=== PATIENT | male | born 1955 | race Hispanic/Latino ===

== ENCOUNTER → 2018-02-17 | Outpatient (CLI) | payer OTHER ==
[~2018-02-17] MED LIST: REGADENOSON 0.4 MG/5 ML SYR IV ONE
--- NOTE | 2018-02-19 14:14 | Cardiology Report ---
DATE OF STUDY: February 17, 2018 LEXISCAN NUCLEAR STRESS TEST INDICATIONS: Chest pain. DESCRIPTION OF PROCEDURE: After informed consent, the patient was brought to the stress lab. He was given 10.8 mCi of technetium-99 Myoview and myocardial perfusion SPECT images were obtained in the horizontal and short axis, vertical and long axis. Subsequently, the patient was given 0.4 mg of Lexiscan over 10 seconds. Patient was given 29 mCi of technetium-99 Myoview and myocardial perfusion SPECT images were obtained in horizontal and short axis, vertical and long axis. Gating images were also obtained. Patient tolerated the procedure without any complications. REPORT: Baseline EKG shows sinus rhythm at 72 beats per minute. Normal axis. Normal intervals. Nonspecific ST-T changes. PARAMETERS 1. Resting heart rate is 67 beats per minute. 2. Maximum heart rate is 101 beats per minute. 3. Resting blood pressure is 135/78 mmHg. 4. Maximum blood pressure 146/71 mmHg. REASON FOR TERMINATION: End point attained. INTERPRETATION 1. Negative chest pain. 2. Negative for arrhythmias. 3. Blood pressure response consistent with Lexiscan. 4. No significant ST-T changes seen during Lexiscan infusion compared to baseline. 5. Analysis SPECT images reveals uniform radioisotope uptake in all segments of myocardium without and significant perfusion defects. CONCLUSION 1. No evidence of significant ischemia or infarction on this study. 2. No wall motion abnormalities. 3. Overall ejection fraction is 63%. Job#: [id number] [place]
== END ==
LOC: NM 07:54
DX: R94.31 Abnormal electrocardiogram [ECG] [EKG] (principal); I10 Essential (primary) hypertension; Z01.810 Encounter for preprocedural cardiovascular examination
CPT/HCPCS: 78452; 93017; 93306; A9502

== ENCOUNTER 2018-03-15 05:44 | Observation (INO) | payer OTHER ==
[2018-03-12 09:41] LABS: BASOPHILS # (AUTO) 0.1 (0.0-0.1); BASOPHILS % 0.7 % (0.0-1.0); EOSINOPHILS # (AUTO) 0.2 (0.0-0.4); EOSINOPHILS % 2.9 % (0.0-6.0); HEMATOCRIT 44.8 % (38.2-49.6); HEMOGLOBIN 14.8 g/dL (14.0-18.0); LYMPHOCYTES # (AUTO) 1.6 (1.0-3.2); LYMPHOCYTES % 21.7 % (18.0-39.1); MEAN CORPUSCULAR HEMOGLOBIN 30.1 pg (28-32); MEAN CORPUSCULAR VOLUME 91.2 fL (81-99); MONOCYTES # (AUTO) 0.8 (0.2-0.8); NEUTROPHILS # (AUTO) 4.7 (2.1-6.9); NEUTROPHILS % 63.2 % (38.7-80.0); PLATELET COUNT 263 x10e3/uL (140-360); RED BLOOD COUNT 4.91 x10e6/uL (4.3-5.7); RED CELL DISTRIBUTION WIDTH 13.2 % (11.7-14.4)
[2018-03-12 09:58] LABS: BLOOD UREA NITROGEN 18 mg/dL (7-26); BUN/CREATININE RATIO 20 (6-25); CALCIUM 9.8 mg/dL (8.4-10.2); CARBON DIOXIDE 29 mmol/L (22-29); CHLORIDE 102 mmol/L (98-107); CREATININE, SERUM 0.89 mg/dL (0.72-1.25); EST GLOMERULAR FILTRATION RATE > 60 ML/MIN (60-); GLUCOSE 103 mg/dL (74-118); SODIUM 137 mmol/L (136-145)
[~2018-03-15] VITALS: Ht 172.7 cm; Wt 115.7 kg
[~2018-03-15 05:44] MED LIST changes: +ACTOS15 MG PO; +GLIPIZIDE ER5 MG PO; +LISINOPRIL10 MG PO; +METOPROLOL TART50 MG PO; +PRAVASTATIN SOD20 MG PO; -REGADENOSON 0.4 MG/5 ML SYR IV ONE
--- OUTSIDE RECORDS SUMMARY | 2018-03-15 05:47 | XMS REPORT ---
[facility] Address Unknown Phone Unavailable Care Team Providers Care Hvac Sales Engineer Name Role Phone DAXA PALMA Unavailable Unavailable Problems This patient has no known problems. Allergies, Adverse Reactions, Alerts This patient has no known allergies or adverse reactions. Medications This patient has no known medications. Results Test Description Test Time Test Comments Text Results Atomic Results Result Comments Stress Test - Treadmill ONLY 2018-02-19 12:38:00 [place] [id number] Patient Name : PAULETTE SCHREIBER MR #: [id number] : 1955 Age/Sex: 62/M Adm Physician : DAXA PALMA MD Admit Date : Location : PR Room/Bed : REPORT: Cardiology Report DATE OF STUDY: February 17, 2018 LEXISCAN NUCLEAR STRESS TEST INDICATIONS: Chest pain. DESCRIPTION OF PROCEDURE: After informed consent, the patient was brought to the stress lab. He was given 10.8 mCi of technetium-99 Myoview and myocardial perfusion SPECT images were obtained in the horizontal and short axis, vertical and long axis. Subsequently, the patient was given 0.4 mg of Lexiscan over 10 seconds. Patient was given 29 mCi of technetium- 99 Myoview and myocardial perfusion SPECT images were obtained in horizontal and short axis, vertical and long axis. Gating images were also obtained. Patient tolerated the procedure without any complications. REPORT: Baseline EKG shows sinus rhythm at 72 beats per minute. Normal axis. Normal intervals. Nonspecific ST-T changes. PARAMETERS 1. Resting heart rate is 67 beats per minute. 2. Maximum heart rate is 101 beats per minute. 3. Resting blood pressure is 135/78 mmHg. 4. Maximum blood pressure 146/71 mmHg. REASON FOR TERMINATION: End point attained. INTERPRETATION 1. Negative chest pain. 2. Negative for arrhythmias. 3. Blood pressure response consistent with Lexiscan. 4. No significant ST-T changes seen during Lexiscan infusion compared to baseline. 5. Analysis SPECT images reveals uniform radioisotope uptake in all segments of myocardium without and significant perfusion defects. CONCLUSION 1. No evidence of significant ischemia or infarction on this study. 2. No wall motion abnormalities. 3. Overall ejection fraction is 63%. Job#: [id number] [place] Signature Date Dictated By: DAXA PALMA MD Transcribed By: EVELIO on 02/19/18 <Electronically signed by DAXA PALMA MD><<Signature on File>>03/06/18 [id number] COPY TO:
[2018-03-15] MEDS ORDERED: CELECOXIB 200 MG CAP ONE (05:55)
[2018-03-15] MEDS ORDERED: DEXAMETHASONE SOD PHOS 10 MG/1 ML VIAL ONE (05:55)
[2018-03-15] MEDS ORDERED: CEFAZOLIN SOD 2 GM/D5W 50ML 50 ML IV ONE (05:56)
[2018-03-15] MEDS ORDERED: GABAPENTIN 300 MG CAP ONE (05:56)
[2018-03-15] MEDS ORDERED: BACITRACIN 50,000 UNIT VIAL ONE (06:33)
[2018-03-15] MEDS ORDERED: TRANEXAMIC ACID 1,000 MG/10 ML ML ONE (06:33)
[2018-03-15] MEDS ORDERED: MUPIROCIN 2% OINT 22 GM TUBE ONE (06:33)
[2018-03-15] MEDS ORDERED: ROPIVACAINE 246.25 MG, EPINEPHRINE HCL 1:1000 0.5 MG, CLONIDINE HCL 0.08 MG, KETOROLAC ... INJ ONE ×5 (07:30)
[2018-03-15] MEDS: SODIUM CHLORIDE 0.9% 1000ML 1,000 ML IV SCH ×2 (09:21→21:02)
[2018-03-15] MEDS ORDERED: DOCUSATE SODIUM 100 MG CAP PO PRN (09:30)
[2018-03-15] MEDS ORDERED: PROMETHAZINE HCL (IM) 25 MG/ML VIAL IM PRN (09:30)
[2018-03-15] MEDS ORDERED: ZOLPIDEM TARTRATE 5 MG TAB PO PRN (09:30)
[2018-03-15] MEDS ORDERED: DIPHENHYDRAMINE HCL INJ 50 MG/ML VIAL IM/IV PRN (09:30)
[2018-03-15] MEDS ORDERED: ONDANSETRON HCL INJ 2 MG/ML VIAL IV PRN (09:30)
[2018-03-15] MEDS ORDERED: HYDROCODONE 7.5MG/IBUPROFEN 200MG TAB PO PRN (09:30)
--- NOTE | 2018-03-15 10:22 | Diagnostic Imaging Report ---
PROCEDURE: X-RAY RIGHT KNEE, ONE OR TWO VIEWS COMPARISON: None. INDICATIONS:POST RIGHT KNEE SURGERY FINDINGS: Status post right total knee arthroplasty and patellar resurfacing with surrounding soft tissue swelling, air and saad consistent with recent surgery. Hardware appears intact. No acute fractures. Alignment is unremarkable. CONCLUSION: Status post right total knee arthroplasty with expected post surgical findings. Dictated by: TAIWO RILEY M.D. on 03/15/2018 at 10:30 Electronically approved by: TAIWO RILEY M.D. on 03/15/2018 at 10:30
[2018-03-15] MEDS ORDERED: FENTANYL CITRATE/PF 100MCG/2 ML INJ ONE ×2 (10:28→17:14)
--- NOTE | 2018-03-15 10:28 | Operative Report ---
DATE OF PROCEDURE: March 15, 2018 RESTAURANT MGR: Piero Smith PA-C The patient was brought to the operating room for induction of anesthesia. Throughout this case, my PA's assistance was necessary for retraction of soft tissue and positioning of the extremity. This allows for efficient and technically successful execution of the operation and is considered medically necessary. PREOPERATIVE DIAGNOSIS: Osteoarthritis, right knee. POSTOPERATIVE DIAGNOSIS: Osteoarthritis, right knee. PROCEDURE: Right total knee arthroplasty. INDICATIONS: The patient is a 62-year-old gentleman who has end-stage arthritis of both knees. He feels he is more symptomatic on the right side. He has failed conservative management and would now like to proceed with a right total knee replacement. The risks and benefits of the procedure have been explained at length. All of his questions have been answered. He states he understands and wishes to proceed. DESCRIPTION OF PROCEDURE: The patient was brought to the operating room and placed under general anesthetic. He received a regional block, prophylactic antibiotics and tranexamic acid in the holding area. His right lower extremity was prepped and draped in a sterile manner. A preoperative time out was performed. The extremity was exsanguinated, and a proximal tourniquet was inflated to 300 mmHg. An anterior approach with a medial parapatellar arthrotomy was performed. Clear synovial fluid was removed from the joint. Soft-tissue releases were performed to bring the knee up into flexion with the patella everted. The cruciate remnants were excised. A Richardson and Nephew Legion posterior stabilized knee system was used throughout the case. The meniscal remnants and marginal osteophytes were removed. Complete loss of articular cartilage down to polished subchondral bone in the medial compartment was noted. An extramedullary cutting guide was used to resect the proximal tibia. The tibial baseplate was noted to be a size number 5. The central fin punch was impacted, and attention was directed towards the distal femur. An intramedullary cutting guide was used to resect the distal femur in 6 degrees of valgus and 3 degrees of external rotation. The rotation was also referenced off of the epicondylar axis, Kunkle's line and the posterior condyles. The femoral component was a size number 6. Anterior and posterior cuts were made. Trial reductions were performed. A 9-mm ultracongruent tibial insert was felt to provide appropriate soft-tissue balancing in full extension and 90 degrees of flexion. The patella was resurfaced with a 32-mm x 9-mm patellar button. The thickness was checked before and after and was right around 24 mm. Patellar tracking was noted to be concentric. The trial implants were then all removed. A 100-mL premixed pericapsular MATIAS injection was placed into the surrounding soft tissue. The knee was thoroughly irrigated with a shower-tip pulsatile lavage. The components were cemented into place using a single mix of Palacos cement preloaded with antibiotics. Care was taken to remove all extravasated cement. The wound was further irrigated while the cement cured. The arthrotomy was then carefully closed with interrupted #1 Ethibond. The knee was put through flexion and extension to ensure a secure closure. The skin was closed with subcuticular Vicryl and saad. A sterile Aquacel bandage was then applied. The patient was then extubated and transported to the recovery room in stable condition. Blood loss was minimal. All needle and sponge counts were correct. Job#: [id number]
[2018-03-15] MEDS ORDERED: MORPHINE SULFATE 2 MG/ML SYR ONE ×2 (11:56→13:16)
[2018-03-15 14:00] VITALS: BP 126/63
[2018-03-15] MEDS ORDERED: CEFAZOLIN SOD 1 GM/D5W 50ML 50 ML IV SCH (14:00)
[2018-03-15 16:01] VITALS: BP 111/66
[2018-03-15] MEDS: CEFAZOLIN SOD 1 GM VIAL IV SCH (16:01)
[2018-03-15] MEDS: ASPIRIN 325 MG TAB PO SCH (16:01)
[2018-03-15] MEDS ORDERED: CELECOXIB 100 MG CAP PO SCH (17:00)
[2018-03-15] MEDS ORDERED: PROPOFOL IV EMULSION 10 MG/ML 20 ML VIAL ONE (17:11)
[2018-03-15] MEDS ORDERED: GLYCOPYRROLATE INJ 1MG/ 5 ML SYR ONE (17:11)
[2018-03-15] MEDS ORDERED: HYDRALAZINE HCL 20 MG/ML VIAL ONE (17:11)
[2018-03-15] MEDS ORDERED: ONDANSETRON HCL INJ 2 MG/ML VIAL ONE (17:11)
[2018-03-15] MEDS ORDERED: LIDOCAINE HCL 2% LOCAL INJ 5 ML SDV VIAL INJ ONE (17:11)
[2018-03-15] MEDS ORDERED: EPHEDRINE SULFATE INJ 50 MG/10 ML SYR ONE (17:11)
[2018-03-15] MEDS ORDERED: SEVOFLURANE INHAL SOLN 250 ML PEN BTL ONE (17:11)
[2018-03-15] MEDS ORDERED: MIDAZOLAM HCL 2 MG/2 ML VIAL ONE (17:14)
[2018-03-15 20:50] VITALS: BP 132/64
[2018-03-15] MEDS: KETOROLAC TROMETHAMINE 30 MG/ML VIAL IV PRN (21:02)
[2018-03-16 00:05] VITALS: BP 115/63
[2018-03-16] MEDS: CEFAZOLIN SOD 1 GM VIAL IV SCH ×2 (00:28→10:02)
[2018-03-16] MEDS: SODIUM CHLORIDE 0.9% 1000ML 1,000 ML IV SCH (05:21)
[2018-03-16 05:25] VITALS: BP 131/65
[2018-03-16 05:47] LABS: HEMATOCRIT 39.6 % (38.2-49.6); HEMOGLOBIN 13.1 g/dL (14.0-18.0)
[2018-03-16] MEDS: KETOROLAC TROMETHAMINE 30 MG/ML VIAL IV PRN (06:16)
[2018-03-16 08:11] VITALS: BP 144/65
[2018-03-16] MEDS ORDERED: DEXTROSE 50% SYRINGE 50 ML IV PRN (08:30)
[2018-03-16] MEDS ORDERED: TRAMADOL HCL 50 MG TAB PO PRN (08:30)
[2018-03-16] MEDS ORDERED: ASPIRIN325 MG PO (08:32)
[2018-03-16] MEDS ORDERED: PIOGLITAZONE HCL 15 MG TAB PO SCH (09:00)
[2018-03-16] MEDS ORDERED: LISINOPRIL 10 MG TAB PO SCH (09:00)
[2018-03-16] MEDS ORDERED: METOPROLOL TARTRATE 50 MG TAB PO SCH (09:00)
[2018-03-16] MEDS ORDERED: GLIPIZIDE 5 MG TAB ER PO SCH (09:00)
[2018-03-16] MEDS: ASPIRIN 325 MG TAB PO SCH (10:02)
--- NOTE | 2018-03-16 10:08 | Consultation ---
DATE OF CONSULTATION: REASON FOR CONSULTATION: The patient is status post right knee replacement on March 15, 2018. The patient is for medical management. HISTORY: The patient is a 62-year-old male who has severe osteoarthritis. The patient is now status post right knee replacement. The patient is stable. No complications. He is comfortable at this time. PAST MEDICAL HISTORY: Diabetes, type 2, on oral medications, hypertension, enlarged prostate, osteoarthritis of both knees, history of . SOCIAL HISTORY: The patient does not smoke or use alcohol. No recreational drugs. ALLERGIES: TYLENOL. HOME MEDICATIONS: List is reviewed. REVIEW OF SYSTEMS: Postoperative appropriate pain on the right knee. PHYSICAL EXAMINATION VITAL SIGNS: Temperature is 98, blood pressure 140/62, pulse rate 80, respirations 18. GENERAL: The patient is not in acute distress. He is awake. HEENT: Normocephalic, atraumatic and anicteric. NECK: Supple grossly. PULMONARY: Clear to auscultation bilaterally. CARDIOVASCULAR: S1 and S2. Regular rate and rhythm. ABDOMEN: Soft and nontender. EXTREMITIES: No clubbing or cyanosis or edema. Status post right knee replacement. NEUROLOGIC: No gross focal deficit. LABORATORY: WBC is 7.4, hemoglobin 13.1, hematocrit , and platelets 260,000. Chemistry: Sodium is 137, potassium 5, chloride 102, bicarb 29, BUN 18, creatinine 0.92, glucose is 103. ASSESSMENT 1. Status post right knee total replacement. 2. Osteoarthritis. 3. Diabetes mellitus, type 2. 4. Hypertension. PLAN: Continue with postoperative pain management. Resume his home medications. Discontinue . Job#: [id number] [place]
[2018-03-16] MEDS ORDERED: INSULIN LISPRO 100 UNIT/1 ML 3ML VIAL SQ SCH (11:30)
[2018-03-16 12:29] VITALS: BP 130/68
[2018-03-16] MEDS ORDERED: CELEBREX100 MG PO (13:50)
[2018-03-16] MEDS ORDERED: ULTRAM 50MG50 MG PO (13:51)
[2018-03-16] MEDS ORDERED: TRAMADOL HCL100 MG (13:51)
[2018-03-16] MEDS ORDERED: HYDROCODONE-IB1 EACH PO (13:55)
[2018-03-16] MEDS ORDERED: CELECOXIB 200 MG CAP PO SCH (17:00)
[2018-03-16] MEDS ORDERED: PRAVASTATIN 20 MG TAB PO SCH (21:00)
--- NOTE | 2018-04-26 14:55 | Discharge Summary ---
CHIEF COMPLAINT: Right knee pain. HISTORY OF PRESENT ILLNESS: This patient is a 62-year-old male complains of right knee pain for over 8 years. The patient states the pain has gotten progressively worse over the last few months. He states he has had multiple cortisone injections with temporary relief over the years. He states the last injection did not provide lasting relief. He would now like to proceed with a right total knee replacement. The risks and benefits were explained. His x-rays are consistent with end-stage arthritis. The patient states he understands and wished to proceed. HOSPITAL COURSE: The patient underwent a right total knee replacement without complications. He was then transferred to the recovery room in the floor in stable condition. He remained stable throughout his hospital stay. He progressed nicely with physical therapy. He was able to be discharged home on postop day 1. PRINCIPAL DIAGNOSIS: Osteoarthritis of the right knee. PRINCIPAL PROCEDURE: Right total knee replacement. DISCHARGE INSTRUCTIONS: The patient was discharged home with home physical therapy arranged. He was to be weightbearing as tolerated with a rolling walker. He was to resume his home medications as directed. He was to take aspirin twice a day for thromboprophylaxis. He was instructed to follow up in our office in roughly 10 days. DICTATED BY: Piero Smith PA-C PANKAJ CHAN MD Job#: [id number] [place]
== END 2018-03-16 14:40 | disposition home or self-care (01) ==
LOC: OR 05:44 → PACU V 09:26 → MED/SURG 13:57
PROVIDERS: ADMIT Specialist; ATTEND Specialist
DX: M17.11 Unilateral primary osteoarthritis, right knee (principal); E11.9 Type 2 diabetes mellitus without complications; I10 Essential (primary) hypertension; Z79.84 Long term (current) use of oral hypoglycemic drugs; Z88.6 Allergy status to analgesic agent; M06.9 Rheumatoid arthritis, unspecified
CPT/HCPCS: 27447; 36415 ×3; 73560; 80048; 82948 ×2; 85014; 85018; 85025; 86850; 86900; 86920; 97116 ×2; 97139; 97161; C1713; G0378 ×2; G8978; G8979; J0171; J0360; J0690 ×3; J1100; J1885 ×2; J2001; J2250; J2270; J2405; J2704; J2795; J3490; J7030

== ENCOUNTER 2018-08-16 06:18 | Observation (INO) | payer OTHER ==
[2018-08-13 10:43] LABS: BASOPHILS # (AUTO) 0.1 (0.0-0.1); BASOPHILS % 0.8 % (0.0-1.0); EOSINOPHILS # (AUTO) 0.1 (0.0-0.4); EOSINOPHILS % 1.8 % (0.0-6.0); HEMATOCRIT 44.4 % (38.2-49.6); HEMOGLOBIN 14.6 g/dL (14.0-18.0); LYMPHOCYTES # (AUTO) 1.2 (1.0-3.2); LYMPHOCYTES % 16.7 % (18.0-39.1); MEAN CORPUSCULAR HEMOGLOBIN 29.8 pg (28-32); MEAN CORPUSCULAR HGB CONC 32.9 g/dL (31-35); MEAN CORPUSCULAR VOLUME 90.6 fL (81-99); MONOCYTES # (AUTO) 0.6 (0.2-0.8); MONOCYTES % 8.8 % (4.4-11.3); NEUTROPHILS # (AUTO) 5.1 (2.1-6.9); NEUTROPHILS % 71.2 % (38.7-80.0); PLATELET COUNT 281 x10e3/uL (140-360); RED CELL DISTRIBUTION WIDTH 13.5 % (11.7-14.4)
--- NOTE | 2018-08-13 10:54 | Diagnostic Imaging Report ---
EXAMINATION: CHEST 2 VIEWS INDICATION: Pre-admit. COMPARISON: None FINDINGS: TUBES and LINES: None. LUNGS: Lungs are well inflated. Lungs are clear. There is no evidence of pneumonia or pulmonary edema. PLEURA: No pleural effusion or pneumothorax. HEART AND MEDIASTINUM: The cardiomediastinal silhouette is unremarkable. BONES AND SOFT TISSUES: No acute osseous lesion. Soft tissues are unremarkable. UPPER ABDOMEN: No free air under the diaphragm. IMPRESSION: No acute radiographic abnormality. Signed by: Dr. Lupe Blair MD on 08/13/2018 10:51 AM
[2018-08-13 11:08] LABS: ANION GAP 10.1 mmol/L (8-16); BLOOD UREA NITROGEN 17 mg/dL (7-26); BUN/CREATININE RATIO 22 (6-25); CALCIUM 9.5 mg/dL (8.4-10.2); CARBON DIOXIDE 26 mmol/L (22-29); CHLORIDE 104 mmol/L (98-107); CREATININE, SERUM 0.78 mg/dL (0.72-1.25); EST GLOMERULAR FILTRATION RATE > 60 ML/MIN (60-); GLUCOSE 122 mg/dL (74-118); POTASSIUM 4.1 mmol/L (3.5-5.1); SODIUM 136 mmol/L (136-145)
[~2018-08-16] VITALS: Ht 172.7 cm; Wt 99.3 kg
[~2018-08-16 06:18] MED LIST changes: +ASPIRIN325 MG PO; +CEFAZOLIN SOD 2 GM/D5W 50ML 50 ML IV ONE; +CELEBREX100 MG PO; +CELECOXIB 200 MG CAP ONE; +DEXAMETHASONE SOD PHOS 10 MG/1 ML VIAL ONE; +GABAPENTIN 300 MG CAP ONE; +HYDROCODONE-IB1 EACH PO; +TRAMADOL HCL100 MG; +ULTRAM 50MG50 MG PO
[2018-08-16] MEDS ORDERED: ROPIVACAINE 246.25 MG, EPINEPHRINE HCL 1:1000 1ML 0.5 MG, CLONIDINE HCL 0.08 MG, KETORO... INJ ONE ×5 (06:30)
[2018-08-16] MEDS ORDERED: TRANEXAMIC ACID 1,000 MG/10 ML ML ONE (07:30)
[2018-08-16] MEDS ORDERED: BACITRACIN 50,000 UNIT VIAL ONE (07:30)
[2018-08-16] MEDS ORDERED: SODIUM CHLORIDE 0.9% 500ML 500 ML ONE (07:33)
[2018-08-16] MEDS ORDERED: VANCOMYCIN HCL 1,000 MG ONE (07:43)
[2018-08-16] MEDS: SODIUM CHLORIDE 0.9% 1000ML 1,000 ML IV SCH ×2 (10:05→20:05)
[2018-08-16] MEDS ORDERED: FENTANYL CITRATE/PF 100MCG/2 ML INJ ONE ×2 (10:10→19:13)
[2018-08-16] MEDS ORDERED: ACETAMINOPHEN 650 MG SUPP PR PRN (10:15)
[2018-08-16] MEDS ORDERED: HYDROCODONE/APAP 5MG-325MG TAB PO PRN (10:15)
[2018-08-16] MEDS ORDERED: PROMETHAZINE HCL (IM) 25 MG/ML VIAL INJ PRN (10:15)
[2018-08-16] MEDS ORDERED: KETOROLAC TROMETHAMINE 30 MG/ML VIAL IV PRN (10:15)
[2018-08-16] MEDS ORDERED: DIPHENHYDRAMINE HCL INJ 50 MG/ML VIAL IM/IV PRN (10:15)
[2018-08-16] MEDS ORDERED: DOCUSATE SODIUM 100 MG CAP PO PRN (10:15)
[2018-08-16] MEDS ORDERED: ONDANSETRON HCL INJ 2MG/ML 2ML 2 MG/ML VIAL IV PRN (10:15)
[2018-08-16] MEDS ORDERED: ZOLPIDEM TARTRATE 5 MG TAB PO PRN (10:15)
[2018-08-16] MEDS ORDERED: HYDROCODONE/APAP 7.5MG-325MG 1 EA TAB PO PRN (10:15)
[2018-08-16] MEDS ORDERED: HYDROMORPHONE 2MG/ML 2 MG/ML ML ONE (10:30)
--- NOTE | 2018-08-16 11:30 | NUR ---
RECEIVED REPORT FROM AUGUST IN PACU. AWAITING FOR PT TO ARRIVE TO FLOOR
[2018-08-16 11:33] VITALS: BP 136/70
[2018-08-16 11:59] VITALS: BP 136/70
[2018-08-16] MEDS ORDERED: ACETAMINOPHEN 1000 MG/100 ML IV SCH (12:00)
--- NOTE | 2018-08-16 12:12 | NUR ---
PT ARRIVED TO UNIT AA0X3. PT STATES HIS PAIN LEVEL IS A 3/10 TO THE LEFT KNEE. PT IS S/P LEFT KNEE SX. LEFT IS DRESSING COVERED WITH ELENI WRAP THAT IS DRY AND INTACT. ICE PACK IN PLACE. FOOT PUMPS CONNECTED BILATERALLY PT HAS COMPRESSION STOCKING TO RIGHT LEG. IV TO THE RIGHT HAND WITH LR AT 100, SITE IS CLEAN AND DRY PT IS IN NO S.S OF DISTRESS, VOIDED INTO URINAL 100CC OF CLEAR URINE PT IS AWARE OF PLAN OF CARE , WILL CONTINUE TO MONITOR AT THIS TIME. SIDE RAILSX2, BED WHEELS LOCKED, CALL LIGHT IS WITHIN EASY REACH, INSTRUCTED TO CALL FOR ASSISTANCE IF NEEDED
--- NOTE | 2018-08-16 12:14 | NUR ---
PAGED MD JIMENEZ FOR HOME MED RENEWAL. AWAITING FOR CALL BACK
--- NOTE | 2018-08-16 12:18 | Diagnostic Imaging Report ---
Left knee radiographs-2 views History: Post operative radiographs. Findings: Status post left total knee arthroplasty and patellar resurfacing with prosthetic components in anatomic alignment. Overlying soft tissue air and surgical skin saad are present. No evidence of acute fracture. IMPRESSION: Status post left total knee arthroplasty in anatomic position. Signed by: Dr. Lupe Blair MD on 08/16/2018 12:15 PM
[2018-08-16 12:30] VITALS: BP 136/70
[2018-08-16] MEDS ORDERED: TRAMADOL HCL 50 MG TAB PO PRN ×2 (12:45)
[2018-08-16] MEDS ORDERED: DEXTROSE 50% SYRINGE 50 ML IV PRN (13:15)
--- NOTE | 2018-08-16 13:15 | NUR ---
SPOKE TO MD JIMENEZ REGARDING PT ARRIVAL NEW ORDERS RECEIVED
[2018-08-16] MEDS ORDERED: CEFAZOLIN SOD 1 GM/NS 50ML 50 ML IV SCH (14:00)
--- NOTE | 2018-08-16 15:58 | Operative Report ---
DATE OF PROCEDURE: 08/16/2018 SURGEON: Raad Kwan MD HABILITATION SPECIALIST: Piero Smith, certified PA. PREOPERATIVE DIAGNOSIS: Osteoarthritis, left knee. POSTOPERATIVE DIAGNOSIS: Osteoarthritis, left knee. PROCEDURE: Left total knee arthroplasty. INDICATIONS: The patient is a 63-year-old gentleman, who has end-stage arthritis of his left knee. He has failed conservative management and would like to proceed with a left total knee replacement. The risks and benefits were reviewed. He went through a right total knee replacement about six months ago. He states he understands and is highly motivated to proceed with a left knee replacement. PROCEDURE IN DETAIL: The patient was brought to the operating room and placed under general anesthetic. He received prophylactic antibiotics, a regional block and tranexamic acid in the holding area. His left lower extremity was prepped and draped in the sterile manner. A preoperative time-out was performed. The extremity was exsanguinated and a proximal tourniquet was inflated to 300 mmHg. An anterior approach with a medial parapatellar arthrotomy was performed. Clear synovial fluid was removed from the joint. Soft tissue releases were performed to bring the knee up into flexion with the patella everted. Meniscal remnants, marginal osteophytes in the cruciate ligaments were all removed. A Richardson and Nephew legion posterior stabilized knee system was used throughout the case. An extramedullary cutting guide was used to resect the proximal tibia. The tibial base plate was a size #5. The central fin punch was impacted and attention was directed toward the distal femur. An intramedullary cutting guide was used to resect the distal femur and 6 degrees of valgus and an external rotation referencing off a combination of landmarks including [place] line, the epicondylar axis and the posterior condyles. The femoral component was a size #6. The anterior and posterior cuts were made. Trial reductions were performed. A 9 mm ultracongruent tibial insert provided appropriate soft tissue balancing in full extension and 90 degrees of flexion. The patella was resurfaced with a 32 mm x 9 mm patellar button. The thickness was checked before and after and was right around 26 mm. Patellar tracking was noted to be concentric. The trial implants were then all removed. A 100 mL premixed pericapsular MATIAS injection was placed into the surrounding soft tissue. The knee was thoroughly irrigated with a shower tip pulsatile lavage. The components were cemented into place using a single mix of Palacos cement preloaded with antibiotics. Care was taken to remove extravasated cement. The wound was further irrigated while the cement cured. 500 mg of vancomycin powder were then sprinkled into the wound. Throughout the case, a mixture of polymyxin and vancomycin spray had been used to irrigate the wound as well. The arthrotomy was then closed with interrupted #1 Ethibond. The knee was put through flexion and extension to ensure a secure closure. The skin was closed with subcuticular Vicryl and saad. A sterile Aquacel bandage was applied. The patient was extubated and transported to the recovery room in stable condition. Blood loss was minimal. All needle and sponge counts were correct. Raad Kwan MD DR/MATY /[id number] MTDAntonio
[2018-08-16 16:32] VITALS: BP 115/62
[2018-08-16] MEDS ORDERED: CELECOXIB 100 MG CAP PO SCH (17:00)
[2018-08-16] MEDS: INSULIN LISPRO 100 UNIT/1 ML 3ML VIAL SQ SCH ×2 (17:27→20:31)
[2018-08-16] MEDS: CEFAZOLIN SOD 1 GM/NS 50ML 50 ML IV SCH (17:27)
[2018-08-16] MEDS: CELECOXIB 200 MG CAP PO SCH (17:27)
[2018-08-16] MEDS: ASPIRIN 325 MG TAB PO SCH (17:27)
--- NOTE | 2018-08-16 17:28 | NUR ---
reassessed left knee dressing with anne wrap s/p left knee sx. dressing remains dry and intact
[2018-08-16] MEDS ORDERED: DEXAMETHASONE SOD PHOS INJ 4 MG/ML VIAL ONE (17:30)
[2018-08-16] MEDS ORDERED: SEVOFLURANE INHAL SOLN 250 ML PEN BTL ONE (17:30)
[2018-08-16] MEDS ORDERED: LIDOCAINE HCL 2% LOCAL INJ 5 ML SDV VIAL INJ ONE (17:30)
[2018-08-16] MEDS ORDERED: PROPOFOL IV EMULSION 10 MG/ML 20 ML VIAL ONE (17:30)
[2018-08-16] MEDS ORDERED: ONDANSETRON HCL INJ 2MG/ML 2ML 2 MG/ML VIAL ONE (17:30)
[2018-08-16] MEDS ORDERED: HYDRALAZINE HCL 20 MG/ML VIAL ONE (17:30)
[2018-08-16] MEDS ORDERED: ROPIVACAINE 0.5% 5 MG/ML 30 ML SDV ONE (18:13)
[2018-08-16] MEDS ORDERED: LIDOCAINE 2% /EPINEPHRINE 20 ML SDV INJ ONE (18:13)
--- NOTE | 2018-08-16 18:30 | NUR ---
PLACED PT ON CPM AT 60 TOLERATING WELL
[2018-08-16] MEDS ORDERED: MIDAZOLAM HCL 2 MG/2 ML VIAL ONE (19:13)
[2018-08-16] MEDS ORDERED: MORPHINE SULFATE INJ 10 MG/ML ONE (19:13)
[2018-08-16 19:30] VITALS: BP 115/62
[2018-08-16 20:27] VITALS: BP 137/61
[2018-08-17 00:37] VITALS: BP 110/59
[2018-08-17] MEDS: CEFAZOLIN SOD 1 GM/NS 50ML 50 ML IV SCH ×2 (01:28→08:58)
[2018-08-17 04:10] VITALS: BP 115/56
[2018-08-17] MEDS: SODIUM CHLORIDE 0.9% 1000ML 1,000 ML IV SCH (06:05)
[2018-08-17 06:12] LABS: HEMATOCRIT 37.8 % (38.2-49.6); HEMOGLOBIN 12.2 g/dL (14.0-18.0)
[2018-08-17 06:31] LABS: ANION GAP 10.6 mmol/L (8-16); BLOOD UREA NITROGEN 23 mg/dL (7-26); BUN/CREATININE RATIO 29 (6-25); CALCIUM 8.8 mg/dL (8.4-10.2); CARBON DIOXIDE 26 mmol/L (22-29); CHLORIDE 101 mmol/L (98-107); CREATININE, SERUM 0.79 mg/dL (0.72-1.25); EST GLOMERULAR FILTRATION RATE > 60 ML/MIN (60-); GLUCOSE 188 mg/dL (74-118); POTASSIUM 4.6 mmol/L (3.5-5.1); SODIUM 133 mmol/L (136-145)
[2018-08-17] MEDS: INSULIN LISPRO 100 UNIT/1 ML 3ML VIAL SQ SCH ×2 (07:30→11:30)
[2018-08-17 08:26] VITALS: BP 169/74
[2018-08-17] MEDS: CELECOXIB 200 MG CAP PO SCH (08:58)
[2018-08-17 08:59] VITALS: BP 169/74
[2018-08-17] MEDS: ASPIRIN 325 MG TAB PO SCH (08:59)
[2018-08-17] MEDS ORDERED: LISINOPRIL 10 MG TAB PO SCH (09:00)
[2018-08-17] MEDS ORDERED: METOPROLOL TARTRATE 50 MG TAB PO SCH (09:00)
[2018-08-17] MEDS ORDERED: GLIPIZIDE 5 MG TAB ER PO SCH (09:00)
[2018-08-17] MEDS ORDERED: ACETAMINOPHEN 1000 MG/100 ML IV PRN (10:15)
--- NOTE | 2018-08-17 10:32 | NUR ---
CASE MANAGEMENT ASSESSMENT District Home Economics Agent to bedside to discuss plan of care with patient/family. CM/SW role and care transitions discussed. Anticipated discharge plan discussed along with duration of care. CM/SW discussed patients right to make decisions in care. CM/SW work hours given. Patient lives: with Leah Admit/Transfer: from PACU Hospital/ER visits since last admit: Feb 2018 for knee surgery was last admit POA/Emergency contact: Leah Fay [phone] Current/Previous Home Health: none PCP/Follow-up Care: Dr. Winn - PCP; pt will ask Dr. Kwan about follow up appointment when he rounds today. He will call and schedule the appointment as instructed by Dr. Kwan Current/Previous DME: has walker and BSC from previous knee surgery Dr. Kwan's office sent orders for DME to [facility] [employer]. CM called and spoke with Neisha who stated that they were waiting for auth. CM informed her that pt does not need walker or BSC. She will contact CM / pt regarding CPM machine. Pt will ask his to bring his walker to hospital for discharge. Scale of 1-10 how comfortable does patient feel with disease management in outpatient setting: Other Services: none Employment Status: retired Areas of Concerns: s/p knee arthroplasty Referral Needs: home health - Referral was sent by Dr. Kwan's office to [facility]. Pt is agreeable with [facility]. Signed choice form placed in chart. Copy to pt. CM called and spoke with Anna with intake. She stated that pt has been approved and they will see pt tomorrow. Their office will reach out to pt to schedule a time to come see him. Pt was given [facility] information. P [phone] / F [phone] Operative report and PT notes were faxed. Education Needs: post operative instructions IMM/GATES given and signed (if applicable): [place] letter was delivered and explained to pt. He verbalized understanding. Signed copy placed in chart. Copy to pt. Goal for discharge: home with [facility] today. CM/SW left business card at the bedside with contact information. Name and number was also written on the patients whiteboard. Patient verbalized understanding of discussion. CM will follow-up with ongoing discharge and transition of care needs.
[2018-08-17] MEDS ORDERED: ASPIRIN325 MG PO (11:06)
--- NOTE | 2018-08-17 11:19 | NUR ---
DISCHARGE ORDER IN COMPUTER CM HAS SET UP HOME HEALTH PHYSICAL THERAPY HAS WORKED WITH PT TWICE TODAY AND CLEARED PT WILL GET DC INFORMATION READY AT THIS TIME
--- NOTE | 2018-08-17 12:19 | NUR ---
Removed IV at this time from right hand. Pressure dressing applied. Patient ride to arrive around 1400
[2018-08-17 13:17] VITALS: BP 128/74
--- NOTE | 2018-08-17 13:20 | NUR ---
PT WAITING ON FOR RIDE HOME. PT WANTS TO WAIT ON FOR DC INSTRUCTIONS GIVEN. INSTRUCTED PT TO CALL WHEN FAMILY ARRIVED
--- NOTE | 2018-08-17 14:15 | NUR ---
DC INSTRUCTIONS AND PRESCRIPTIONS GIVEN. PT VERBALIZED UNDERSTANDING .PT IS READY FOR DC AT THIS TIME
== END 2018-08-17 14:22 | disposition home health service (06) ==
LOC: OR 06:18 → PACU V 10:08 → MED/SURG 11:47
PROVIDERS: ADMIT Specialist; ATTEND Specialist
DX: M17.12 Unilateral primary osteoarthritis, left knee (principal); E11.9 Type 2 diabetes mellitus without complications; I10 Essential (primary) hypertension; M06.9 Rheumatoid arthritis, unspecified; Z88.6 Allergy status to analgesic agent; Z96.651 Presence of right artificial knee joint; K21.9 Gastro-esophageal reflux disease without esophagitis; Z87.442 Personal history of urinary calculi; F41.9 Anxiety disorder, unspecified; Z79.82 Long term (current) use of aspirin; Z79.84 Long term (current) use of oral hypoglycemic drugs
CPT/HCPCS: 27447; 36415 ×3; 71046; 73560; 80048 ×2; 82948 ×2; 85014; 85018; 85025; 86850; 86900; 86920; 93005; 97116 ×2; 97139; 97161; 97530; G0378 ×2; J0171; J0360; J0690 ×3; J1100 ×2; J1170; J1885 ×2; J2001 ×2; J2250; J2270; J2405; J2704; J2795; J3370; J7040

== ENCOUNTER → 2018-08-26 | Outpatient (CLI) | payer OTHER ==
[~2018-08-26] MED LIST changes: -CEFAZOLIN SOD 2 GM/D5W 50ML 50 ML IV ONE; -CELECOXIB 200 MG CAP ONE; -DEXAMETHASONE SOD PHOS 10 MG/1 ML VIAL ONE; -GABAPENTIN 300 MG CAP ONE
== END ==
LOC: RAD 11:04
PROVIDERS: ATTEND Specialist
DX: R22.42 Localized swelling, mass and lump, left lower limb (principal)
CPT/HCPCS: 93971

== ENCOUNTER → 2023-09-24 | Day surgery (SDC) | payer OTHER ==
[~2023-09-24] MED LIST changes: +ASPIRIN81 MG PO; +BALANCED SALT SOLN (OPTH) 15 ML BTL IO ONE; +BUPIVACAINE HC 0.75% PF 10ML VIAL INJ ONE; +CYCLOPENTOLATE HCL 2% OPTH SOLN 2 ML BTL OP ONE; +EPINEPHRINE HCL 1:1000 1ML 1 MG/ML AMP ONE; +GATIFLOXACIN(OPTH) 5 ML LIQD ONE; +HYDROCHLOROTHIA25 MG PO; +LIDOCAINE 2% /EPINEPHRINE 20 ML SDV INJ ONE; +LIDOCAINE HCL-PF 4% 40 MG/1 ML 5ML AMP ONE; +LIPITOR20 MG PO; +MIDAZOLAM HCL 2 MG/2 ML VIAL ONE; +PEPCID AC10 MG PO; +PHENYLEPHRINE HCL 2 ML DROPS ONE; +POVIDONE IODINE 5% (OPTH) 30 ML BTL ONE; +PROPOFOL IV EMULSION 10 MG/ML 20 ML VIAL ONE
[2023-09-24] MEDS: LACTATED RINGER'S 1,000 ML ONE (09:26)
[2023-09-24 09:32] LABS: BASOPHILS # (AUTO) 0.1 (0.0-0.1); BASOPHILS % 0.7 % (0.0-1.0); EOSINOPHILS # (AUTO) 0.1 (0.0-0.4); EOSINOPHILS % 1.6 % (0.0-6.0); HEMATOCRIT 41.1 % (38.2-49.6); HEMOGLOBIN 13.6 g/dL (14.0-18.0); LYMPHOCYTES # (AUTO) 1.2 (1.0-3.2); LYMPHOCYTES % 12.9 % (18.0-39.1); MEAN CORPUSCULAR HEMOGLOBIN 30.2 pg (28-32); MEAN CORPUSCULAR HGB CONC 33.1 g/dL (31-35); MEAN CORPUSCULAR VOLUME 91.3 fL (81-99); MONOCYTES # (AUTO) 0.8 (0.2-0.8); MONOCYTES % 8.3 % (4.4-11.3); NEUTROPHILS # (AUTO) 6.9 (2.1-6.9); NEUTROPHILS % 76.2 % (38.7-80.0); PLATELET COUNT 222 x10e3/uL (140-360); RED CELL DISTRIBUTION WIDTH 13.6 % (11.7-14.4)
[2023-09-24 09:52] LABS: ANION GAP 14.4 mmol/L (8-16); CALCIUM 9.4 mg/dL (8.4-10.2); CREATININE, SERUM 0.89 mg/dL (0.72-1.25); POTASSIUM 4.4 mmol/L (3.5-5.1)
[2023-09-24 11:03] VITALS: TEMP 98
[2023-09-24 11:30] VITALS: BP 138/80; PULSE 55; RESP 15; O2SAT 97
== END | disposition home or self-care (01) ==
LOC: OR 07:29
PROVIDERS: ATTEND Ophthalmology
DX: H25.12 Age-related nuclear cataract, left eye (principal); I10 Essential (primary) hypertension; E11.9 Type 2 diabetes mellitus without complications; E78.5 Hyperlipidemia, unspecified; E66.9 Obesity, unspecified; K21.9 Gastro-esophageal reflux disease without esophagitis; Z88.6 Allergy status to analgesic agent; Z01.810 Encounter for preprocedural cardiovascular examination; Z79.84 Long term (current) use of oral hypoglycemic drugs; Z79.82 Long term (current) use of aspirin; Z79.899 Other long term (current) drug therapy
CPT/HCPCS: 36415; 66984; 80048; 82948; 85025; 93005; J0171; J2001; J2250; J2704; J7121